=== PATIENT | female | born 1980 | race Hispanic/Latino ===

== ENCOUNTER 2017-03-06 23:13 | Emergency (ER) | payer OTHER ==
[~2017-03-06] VITALS: Ht 162.6 cm; Wt 74.8 kg
[2017-03-06] MEDS ORDERED: FLAGYL500 MG PO (23:30)
[2017-06-04] MEDS ORDERED: IBUPROFEN800 MG PO (14:58)
== END 2017-03-07 02:27 | disposition home or self-care (01) ==
LOC: ED 23:13
DX: R10.2 Pelvic and perineal pain (principal); Z97.5 Presence of (intrauterine) contraceptive device; Z90.49 Acquired absence of other specified parts of digestive tract; Z90.710 Acquired absence of both cervix and uterus; Z79.899 Other long term (current) drug therapy
CPT/HCPCS: 76830; 76856; 80053; 84703; 85025; 96361; 96374; 96375; 96376; 99284; J1170; J2405; J7030

== ENCOUNTER 2017-06-13 05:45 | Day surgery (SDC) | payer OTHER ==
[~2017-06-13] VITALS: Ht 162.6 cm; Wt 74.8 kg
[~2017-06-13 05:45] MED LIST: FLAGYL500 MG PO; IBUPROFEN800 MG PO
[2017-06-13] MEDS ORDERED: PERCOCET 5-3251 EACH PO (10:41)
[2017-06-13] MEDS ORDERED: ZOFRAN ODT4 MG PO (10:42)
--- NOTE | 2017-06-18 08:48 | OR ---
[facility] [address], [place] [address] Signed DATE OF OPERATION: 06/13/2017 SURGEON: Liz Womack MD PACKAGE PICK UP: Dr. Kennedy. PREOPERATIVE DIAGNOSIS: Menorrhagia and pelvic pain. POSTOPERATIVE DIAGNOSIS: Menorrhagia and pelvic pain, pending pathology. PROCEDURE: Total laparoscopic hysterectomy, bilateral salpingectomy, and cystoscopy. ANESTHESIA: General ET. ESTIMATED BLOOD LOSS: 70 mL. DRAINS: Schroeder catheter. INDICATIONS AND FINDINGS: The patient is a 37-year-old female, 6, para 4, SAB 2. She uses vasectomy for control, who has been having very heavy periods. She had been using the Mirena, which was managing her periods well, but she was having to have more pain and when this was removed, her heavy periods returned. At this point, she wished to undergo definitive treatment. At the time of surgery, her exam under anesthesia was normal. At the time of laparoscopy, the pelvis appeared normal as did the uterus, the tubes and the ovaries. PROCEDURE IN DETAIL: The patient was prepped and draped in the dorsal lithotomy position. A weighted speculum was placed. The anterior lip of the cervix was visualized and grasped on the anterior lip. The uterus was sounded to 9.5 cm in length. The endocervical canal was then dilated slightly and a VCare cannula was placed and the balloon inflated at the fundus. The tenaculum and speculum were removed. The cup was then fitted over the cervix and a locking cup fitted into place. Following this, attention was directed above. The infraumbilical area was injected with 0.5% Marcaine plain and incision was made with a knife. Each layer was then serially elevated and incised until the fascia was opened and identified. Stay sutures were then placed. The peritoneum was opened bluntly. The Fede cannula was then placed and tied into place. Placing the scope confirmed proper positioning. CO2 was then introduced into the abdomen. When the abdomen was appropriately distended, the pelvis was visualized and it was felt that the planned procedure was appropriate. Secondary ports were placed slightly below the level of the umbilicus and fairly far laterally. Each of these areas was transilluminated, injected Electronically Signed By: LIZ WOMACK MD 06/18/17 0848 PATIENT NAME: VINCENT POP OPERATIVE REPORT DATE OF : 78 PHYSICIAN: LIZ WOMACK MD REPORT #: [id number] REPORT IS CONFIDENTIAL AND NOT TO BE RELEASED WITHOUT AUTHORIZATION [facility] [address], [place] [address] Signed with the Caroline. Incision made with a knife and the trocars placed under direct vision. The left hand port was a 5 mm port. The port on the patient's right was the expanding port. The Veress needle was then placed and then the 10 port placed through this location. Following this, the procedure was begun. The patient's left tube was removed using the LigaSure [place] device. This was removed through the 10 port after coming along the mesosalpinx. Following this, the utero-ovarian pedicle, the broad ligament and the round ligament were serially coagulated and divided. At this point, the anterior leaf of the peritoneum could be and this was done using the LigaSure device, at which time a partial bladder flap was created. The peritoneum was then taken down posteriorly as well. Following this, the uterine vessels were skeletonized, serially coagulated, and then divided. Further dissection was done both anteriorly and posteriorly such that the cup could be identified. The same procedure was carried out on the patient's right side. Following this, further dissection was done both posteriorly and anteriorly until it was felt that the cup was easily palpated and the area was as thin as possible. The pelvis was thoroughly irrigated and inspected and it was felt that it was appropriate to remove the specimen. The Sonicision device was used and the specimen was removed starting from posteriorly, wrapping around the patient's left side anteriorly and then going back again posteriorly and wrapping around the right side anteriorly. At this point, the specimen was grasped and it was removed intact from below. The vaginal canal was then packed with a glove with a single wet lap tape in it. Attention was redirected above and the pelvis was thoroughly irrigated and inspected. There were bleeding points along the posterior cuff as well as on the right angle. These were controlled using the LigaSure device primarily. There was also a little bit of bleeding on the anterior aspect below the peritoneum and this was controlled with the monopolar cautery using the Dolphin tip forceps. Following this, good hemostasis was noted and the cuff itself was closed using the Endo Stitch. This was a 0 PDS suture, which started at the patient's right uterosacral ligament coming from the peritoneum through to the vaginal mucosa and then coming from the vaginal mucosa through the cuff anteriorly. This was run from the patient's right to the left aspect of the cuff and then back to the center. Following this, the cuff itself appeared to be hemostatic, but just slightly oozy, but there did not appear to be any specific blood vessel to coagulate. There was also a little bit of bleeding where the tube had been removed from the patient's right ovary. This area was controlled with the hook on the monopolar cautery. Following this, the pelvis was again irrigated and the decision was made to proceed with Evicel over the vaginal cuff just to assure hemostasis. This was done, and then the gas was turned down and the pressure in the abdomen decreased and there was no evidence of any bleeding. The procedure was then terminated. The instruments were removed from the abdomen after allowing as much CO2 as possible to escape. The fascial incision at the umbilicus was reidentified and closed with running suture of 0 Vicryl. One of the stay sutures had frayed out and the other was just removed. The skin incisions were closed with subcuticular sutures of 3-0 Vicryl Rapide. Electronically Signed By: LIZ WOMACK MD 06/18/17 0848 PATIENT NAME: VINCENT POP OPERATIVE REPORT DATE OF : 78 PHYSICIAN: LIZ WOMACK MD REPORT #: [id number] REPORT IS CONFIDENTIAL AND NOT TO BE RELEASED WITHOUT AUTHORIZATION [address] [address] Signed Attention was directed below and the Schroeder catheter removed and the bladder inspected via cystoscopy. The patient had received IV fluorescein. The bladder was thoroughly examined. There was no evidence of any injury. Clear yellow urine was seen to freely egress from both of the ureteral orifices. No fluorescein however was seen yet. Following this, the bladder was drained and the Schroeder catheter replaced. The patient was then taken to the recovery room in good condition. All sponge and needle counts were correct. She tolerated the procedure well. Liz Womack MD PJW/MODL /[id number] cc: Dr. Vineet Kennedy Electronically Signed By: LIZ WOMACK MD 06/18/17 0848 PATIENT NAME: VINCENT POP OPERATIVE REPORT DATE OF : 78 PHYSICIAN: LIZ WOMACK MD REPORT #: [id number] REPORT IS CONFIDENTIAL AND NOT TO BE RELEASED WITHOUT AUTHORIZATION
== END 2017-06-14 10:00 | disposition home or self-care (01) ==
LOC: DS 05:45 → MS 17:40 → DS 06-14 10:00
PROVIDERS: Obstetrics & Gynecology
PROC: 0UT94ZZ Resection of Uterus, Percutaneous Endoscopic Approach (ICD-10-PCS; principal; 2017-06-13 06:45)
PROC: 0UT74ZZ Resection of Bilateral Fallopian Tubes, Percutaneous Endoscopic Approach (ICD-10-PCS; 2017-06-13 06:45)
DX: N87.9 Dysplasia of cervix uteri, unspecified (principal); N81.2 Incomplete uterovaginal prolapse; G89.4 Chronic pain syndrome; M54.9 Dorsalgia, unspecified; Z90.49 Acquired absence of other specified parts of digestive tract; Z98.890 Other specified postprocedural states
CPT/HCPCS: 00944; J0694; J1170; J1644; J1885; J2250; J2270; J2370; J2405; J2550; J2704; J2710; J2765; J3010; J7120